=== PATIENT | male | born 1940 | race Caucasian/White ===

== ENCOUNTER → 2016-08-18 | Outpatient (CLI) | payer OTHER, MEDICARE | LOC: MMPC 11:11 | PROVIDERS: ATTEND Internal Medicine | DX: F32.9 Major depressive disorder, single episode, unspecified (principal); I10 Essential (primary) hypertension; R41.3 Other amnesia | CPT/HCPCS: 99214; G0463 ==

== ENCOUNTER → 2016-10-01 | Outpatient (CLI) | payer OTHER, MEDICARE ==
[2016-10-01 15:50] LABS: BASOPHILS # (AUTO) 0.02 10*3/UL; BASOPHILS % (AUTO) 0.3 % (0-1); EOSINOPHILS % (AUTO) 1.8 % (0-8); HEMATOCRIT 43.3 % (42.0-52.0); HEMOGLOBIN 15.4 g/dL (14.0-18.0); IMM GRAN % (AUTO) 0.1 % (0-5); IMM GRAN# (AUTO) 0.01 10*3/UL; LYMPHOCYTES # (AUTO) 1.84 10*3/uL; LYMPHOCYTES % (AUTO) 25.4 % (10-50); MEAN CORPUSCULAR HEMOGLOBIN 32.5 PG (27-31); MEAN CORPUSCULAR HGB CONC 35.6 g/dL (33-37); MEAN PLATELET VOLUME 9.4 FL (7.4-12.2); MONOCYTES # (AUTO) 0.61 10*3/UL (0.3-0.8); MONOCYTES % (AUTO) 8.4 % (5-15); NEUTROPHILS # (AUTO) 4.63 10*3/UL; RDW COEFFICIENT OF VARIATION 12.4 % (11.5-14.5); RED BLOOD COUNT 4.74 10^6/uL (4.70-6.10); WHITE BLOOD COUNT 7.24 10^3/uL (4.8-10.8)
[2016-10-01 15:51] LABS: PLATELET MORPHOLOGY COMMENT NORMAL MORPHOLOGY (NORM)
[2016-10-01 16:00] LABS: BILIRUBIN,TOTAL 0.8 mg/dL (0.3-1.2); BUN/CREATININE RATIO 18.75 (6-20); CALCIUM 9.5 mg/dL (8.7-10.7); CREATININE 0.8 mg/dL (0.70-1.50); POTASSIUM 3.7 meq/L (3.8-5.2); TOTAL PROTEIN 7.1 g/dL (6.1-8.0)
--- NOTE | 2016-10-01 16:42 | DI ---
XR ABDOMEN KUB UPRIGHT,10/01/2016 3:14 PM: Clinical History: Nausea and vomiting. Previous Exam: None at this facility. Findings: 4 views of the abdomen and pelvis are obtained, and demonstrate postsurgical changes consistent with prior cholecystectomy. Diffuse degenerative changes are seen of the lumbar spine. A nonobstructive bowel gas pattern is seen. There is diffuse osteopenia. Advanced degenerative changes are seen of the hips bilaterally. Impression: No acute intra-abdominal pathology.
== END ==
LOC: RAD 15:17
PROVIDERS: ATTEND Physician Assistant
DX: R11.2 Nausea with vomiting, unspecified (principal); R53.1 Weakness; R06.02 Shortness of breath; E87.6 Hypokalemia
CPT/HCPCS: 36415; 74020; 80053; 83690; 85025; 96360; 99214; G0463; J2405

== ENCOUNTER → 2016-10-28 | Outpatient (CLI) | payer OTHER, MEDICARE ==
[2016-10-28 17:30] LABS: HEMOGLOBIN A1C 6.71 % (4.2-6.0)
[2016-10-28 17:42] LABS: BUN/CREATININE RATIO 22.5 (6-20)
[2016-10-29 06:02] LABS: VITAMIN D 25-HYDROXY 23.1 NG/ML (30-100)
== END ==
LOC: MOB LAB 16:54
PROVIDERS: ATTEND Nurse Practitioner
DX: R73.03 Prediabetes (principal); G60.9 Hereditary and idiopathic neuropathy, unspecified; E03.9 Hypothyroidism, unspecified; M15.8 Other polyosteoarthritis; I10 Essential (primary) hypertension; F03.90 Unspecified dementia, unspecified severity, without behavioral disturbance, psychotic disturbance, mood disturbance, and anxiety; F32.9 Major depressive disorder, single episode, unspecified
CPT/HCPCS: 36415; 80048; 82306; 82607; 83036; 84443

== ENCOUNTER → 2016-11-06 | Outpatient (CLI) | payer OTHER, MEDICARE | LOC: MMPC 11:11 | PROVIDERS: ATTEND Nurse Practitioner | DX: G60.9 Hereditary and idiopathic neuropathy, unspecified (principal); F32.9 Major depressive disorder, single episode, unspecified; R73.03 Prediabetes; M15.9 Polyosteoarthritis, unspecified; S51.012A Laceration without foreign body of left elbow, initial encounter; W18.39XA Other fall on same level, initial encounter; Y92.003 Bedroom of unspecified non-institutional (private) residence as the place of occurrence of the external cause | CPT/HCPCS: 99213; G0463 ==

== ENCOUNTER → 2016-11-21 | Outpatient (CLI) | payer OTHER, MEDICARE ==
[2016-11-21 09:38] LABS: CALCIUM 9.6 mg/dL (8.7-10.7)
== END ==
LOC: LAB 08:36
PROVIDERS: ATTEND Internal Medicine
DX: E87.1 Hypo-osmolality and hyponatremia (principal)
CPT/HCPCS: 36415; 80048

== ENCOUNTER → 2016-12-29 | Outpatient (CLI) | payer OTHER, MEDICARE | LOC: MMPC 11:11 | PROVIDERS: ATTEND Internal Medicine | DX: G25.9 Extrapyramidal and movement disorder, unspecified (principal); I10 Essential (primary) hypertension; M54.2 Cervicalgia; R41.3 Other amnesia | CPT/HCPCS: 99214; G0463 ==